=== PATIENT | female | born 1970 | race Caucasian/White ===

== ENCOUNTER 2019-05-21 03:49 | Inpatient (IN) | payer OTHER ==
[~2019-05-21] VITALS: Ht 160 cm; Wt 57.1 kg
[~2019-05-21 03:49] MED LIST: BUDEPRION XL300 MG PO; CYCLOBENZAPRINE10 MG PO; IBUPROFEN600 MG PO; NORCO 5-325 TA1 EACH PO; OMEPRAZOLE20 MG PO; ONDANSETRON ODT4 MG SL; PROMETHAZINE-COD5 ML PO; PROTONIX40 MG PO; WELLBUTRIN XL150 MG PO; ZOFRAN ODT8 MG PO; ZOFRAN4 MG PO
[2019-05-22] MEDS ORDERED: PEPCID40 MG PO (12:07)
== END 2019-05-22 13:15 | disposition home or self-care (01) | DRG 392 ==
LOC: ED 03:49 → MS 08:08
PROVIDERS: ADMIT Internal Medicine
DX: R11.2 Nausea with vomiting, unspecified (principal); R10.13 Epigastric pain; R00.1 Bradycardia, unspecified; F17.200 Nicotine dependence, unspecified, uncomplicated; F41.9 Anxiety disorder, unspecified; Z88.8 Allergy status to other drugs, medicaments and biological substances; Z87.11 Personal history of peptic ulcer disease; Z20.828 Contact with and (suspected) exposure to other viral communicable diseases
CPT/HCPCS: 36415; 74177; 80048; 80053; 81001; 83690; 83735; 84100; 85025; 87502; 96361; 99285-25; C9113; J1170; J1630; J2405; J2550; J2765; J7030; J7042; Q9967

== ENCOUNTER → 2020-02-26 | Emergency (ER) | payer OTHER | LOC: ED 10:54 | DX: R10.10 Upper abdominal pain, unspecified (principal); R11.2 Nausea with vomiting, unspecified; F41.9 Anxiety disorder, unspecified; F17.200 Nicotine dependence, unspecified, uncomplicated; Z88.8 Allergy status to other drugs, medicaments and biological substances ==

== ENCOUNTER 2020-11-14 15:37 | Emergency (ER) | payer BC, OTHER ==
[~2020-11-14] VITALS: Ht 160 cm; Wt 57.1 kg
[~2020-11-14 15:37] MED LIST changes: +ONDANSETRON ODT8 MG PO; +PEPCID40 MG PO
[2020-11-14] MEDS ORDERED: LISINOPRIL20 MG PO (15:59)
[2020-11-14] MEDS ORDERED: ONDANSETRON ODT4 MG PO (18:44)
== END 2020-11-14 19:09 | disposition home or self-care (01) ==
LOC: ED 15:37
DX: K29.70 Gastritis, unspecified, without bleeding (principal); F17.200 Nicotine dependence, unspecified, uncomplicated; Z88.6 Allergy status to analgesic agent; Z20.822 Contact with and (suspected) exposure to COVID-19
CPT/HCPCS: 80053; 81001; 83690; 83735; 84703; 85025; 96374; 99284-25; C9803; J2405; J7040; U0003

== ENCOUNTER 2022-05-13 05:52 | Emergency (ER) | payer OTHER ==
[~2022-05-13] VITALS: Ht 160 cm; Wt 52.7 kg
[~2022-05-13 05:52] MED LIST changes: +LISINOPRIL20 MG PO; +ONDANSETRON ODT4 MG PO
[2022-05-14] MEDS ORDERED: PROMETHAZINE HC25 M1 PO (16:03)
[2022-05-14] MEDS ORDERED: ATIVAN1 MG PO (16:03)
--- NOTE | 2022-05-14 19:02 | EKG ---
[facility] [address] [facility] [address] [place] [id number] Signed Normal sinus rhythm Possible Left atrial enlargement Nonspecific T wave abnormality Prolonged QT Abnormal ECG When compared with ECG of 11-SEP-2016 20:51, MA interval has increased T wave inversion now evident in Anterior leads Confirmed by DENI MILLS MD ([id number]) on 05/14/2022 7:01:59 PM Electronically Signed By: DENI MILLS MD 05/14/221901 PATIENT NAME: HONORIO MANCILLA MARIA Electrocardiogram DATE OF : 72 PHYSICIAN: DENI MILLS MD REPORT #: [id number] REPORT IS CONFIDENTIAL AND NOT TO BE RELEASED WITHOUT AUTHORIZATION
== END 2022-05-13 13:32 | disposition home or self-care (01) ==
LOC: ED 05:52
DX: R10.13 Epigastric pain (principal); R11.2 Nausea with vomiting, unspecified; F12.90 Cannabis use, unspecified, uncomplicated; F17.200 Nicotine dependence, unspecified, uncomplicated; Z20.822 Contact with and (suspected) exposure to COVID-19; Z88.6 Allergy status to analgesic agent
CPT/HCPCS: 36415; 74177; 80053; 81001; 83605; 83690; 84484; 85025; 87502; 93005; 93010; 96361; 96375; 99284-25; C9803; J0780; J1170; J1790; J2405; J2543; J3010; J7030; Q9967; U0003

== ENCOUNTER 2022-05-14 08:07 | Emergency (ER) | payer OTHER ==
[~2022-05-14] VITALS: Ht 160 cm; Wt 52.7 kg
--- OUTSIDE RECORDS SUMMARY | 2022-05-14 08:14 | XMS ---
PreManage Notification: HONORIO MANCILLA [employer] Team Member Events No recent Security Events currently on file CRITERIA MET - [facility] - 2 Visits in 30 Days CARE PROVIDERS There are no care providers on record at this time. [place] has no Care Guidelines for this patient. [facility] V[facility] (12 MO.) [facility] NOTE: Visits indicate total known visits. ED/C VISIT TRACKING (12 MO.) [facility]22 08[facility] COMPLAINT: - VOMITING 05/13/2022 05:53 [facility] [place] TYPE: Emergency COMPLAINT: - VOMITING INPATIENT VISIT TRACKING (12 MO.) No inpatient visits to display in this time frame [email or web address]
[2022-05-14] MEDS ORDERED: ATIVAN1 MG PO (16:03)
[2022-05-14] MEDS ORDERED: PROMETHAZINE HC25 M1 PO (16:03)
== END 2022-05-14 16:16 | disposition home or self-care (01) ==
LOC: ED 08:07
DX: R11.2 Nausea with vomiting, unspecified (principal); F12.90 Cannabis use, unspecified, uncomplicated; R10.9 Unspecified abdominal pain; F17.200 Nicotine dependence, unspecified, uncomplicated; Z88.6 Allergy status to analgesic agent
CPT/HCPCS: 36415; 80053; 83735; 85025; 87088; 96361; 96374; 96375; 96376; 99284-25; J1200; J1790; J1885; J2060; J7030

== ENCOUNTER 2022-12-11 13:57 | Emergency (ER) | payer OTHER ==
[~2022-12-11] VITALS: Ht 160 cm; Wt 53.7 kg
--- OUTSIDE RECORDS SUMMARY | ~2022-12-11 | XMS | Continuity of Care Document ---
Demographics + + + | Address | [address] | | | [place] [address] | + + + | Preferred Language | Unknown | + + + | Marital Status | Never | + + + | Adventist Affiliation | Unknown | + + + | Race | White | + + + | Ethnic Group | Not or | + + + Author + + + | Author | [facility] | + + + | Organization | [facility] | + + + | Address | [address] | | | [place] [address] | + + + | Phone | | + + + Care Team Providers + + + + | Care In Store Demonstrator Name | Role | Phone | + + + + Unavailable | Unavailable | + + + + Unavailable | Unavailable | + + + + Allergies and Intolerances + + + + + + | date | description | facility | reaction | severity | + + + + + + | (no date) | Aspirin | [facility] | (no reaction) | (no severity) | | [facility] | | | + + + + + + | (no date) | Aspirin | [facility] | (no reaction) | (no severity) | | | [facility] | | | + + + + + + | (no date) | Vomiting | [facility] | (no reaction) | (no severity) | | | [facility] | | | + + + + + + | (no date) | Aspirin | [facility] | (no reaction) | (no severity) | | | | [place] | | | | [facility] | | | + + + + + + Encounters No information. Functional Status No information. Immunizations No information. Medications + + + + | date | description | facility | + + + + | 2019-05-22 00:00 | FAMOTIDINE | [facility] | + + + + | 2022-05-14 00:00 | LORAZEPAM | [facility] | + + + + | 2015-01-11 00:00 | ONDANSETRON | [facility] | + + + + | 2022-05-13 00:00 | ONDANSETRON HCL | [facility] | + + + + | 2022-05-14 00:00 | ONDANSETRON HCL | [facility] | + + + + | 2020-02-26 00:00 | OMEPRAZOLE | [facility] | + + + + | 2022-05-13 00:00 | OMEPRAZOLE | [facility] | + + + + | 2022-05-14 00:00 | OMEPRAZOLE | [facility] | + + + + | 2016-04-24 00:00 | PANTOPRAZOLE SODIUM | [facility] | + + + + | 2020-02-26 00:00 | ONDANSETRON | [facility] | + + + + | 2022-05-13 00:00 | LISINOPRIL | [facility] | + + + + | 2022-05-14 00:00 | LISINOPRIL | [facility] | + + + + | 2015-01-11 00:00 | HYDROCODONE | [facility] | | | BIT/ACETAMINOPHEN | | + + + + | 2022-05-13 00:00 | HYDROCODONE | [facility] | | | BIT/ACETAMINOPHEN | | + + + + | 2022-05-14 00:00 | HYDROCODONE | [facility] | | | BIT/ACETAMINOPHEN | | + + + + | 2022-05-14 00:00 | PROMETHAZINE HCL | [facility] | + + + + | 2022-05-13 00:00 | BUPROPION HCL | [facility] | + + + + | 2022-05-14 00:00 | BUPROPION HCL | [facility] | + + + + Problems + + + + | date | description | facility | + + + + | 2015-01-11 00:00 | Gastritis | [facility] | + + + + | 2016-04-24 00:00 | Peptic ulcer | [facility] | + + + + | 2016-09-12 00:00 | Alcohol abuse | [facility] | + + + + | 2016-09-12 00:00 | Chest pain | [facility] | + + + + | 2019-05-21 00:00 | Acute gastritis | [facility] | + + + + | 2020-11-14 00:00 | Vomiting and diarrhea | [facility] | + + + + | 2022-05-13 00:00 | Abdominal pain | [facility] | + + + + | 2022-05-13 00:00 | Cannabinoid hyperemesis | [facility] | | | syndrome | | + + + + Procedures No information. Results/Labs +--------+--------+ +---------+--------+---------+ | test | date | facility | value | unit | notes | +--------+--------+ +---------+--------+---------+ + + | Result panel 1 | + + + + + +--------+ + + | | 2022-05-13 | [facility] | 23.3 | (missing) | (missing) | | (unavailable | 06:27:08 [facility] | | | | + + + +--------+ + + + + | Result panel 2 | + + + + + +------+ + + | | 2022-05-13 | [facility] | 89 | (missing) | (missing) | | (unavailable | :27:08 | [facility] | | | | + + + +------+ + + + + | Result panel 3 | + + + + + +-----+ + + | | 2022-05-13 | [facility] | 4 | (missing) | (missing) | | (unavailable | :27:08 | [facility] | | | | + + + +-----+ + + + + | Result panel 4 | + + + + + +-----+ + + | | 2022-05-13 | [facility] | 5 | (missing) | (missing) | | (unavailable | :27:08 [facility] | | | | + + + +-----+ + + + + | Result panel 5 | + + + + + +------+ + + | | 2022-05-13 | [facility] | 89 | (missing) | (missing) | | (unavailable | :27:08 [facility] | | | | + + + +------+ + + + + | Result panel 6 | + + + + + +-----+ + + | | 2022-05-13 | [facility] | 4 | (missing) | (missing) | | (unavailable | :27:08 [facility] | | | | + + + +-----+ + + + + | Result panel 7 | + + + + + +-----+ + + | | 2022-05-13 | [facility] | 5 | (missing) | (missing) | | (unavailable | 06:27:08 [facility] | | | | + + + +-----+ + + + + | Result panel 8 | + + + + + +-----+ + + | | 2022-05-13 | [facility] | 2 | (missing) | (missing) | | (unavailable | 06:27:08 [facility] | | | | + + + +-----+ + + + + | Result panel 9 | + + + + + +-----+ + + | | 2022-05-13 | [facility] | 2 | (missing) | (missing) | | (unavailable | 06:27:08 [facility] | | | | + + + +-----+ + + + + | Result panel 10 | + + + + + +------+ + + | | 2022-05-13 | [facility] | 64 | (missing) | (missing) | | (unavailable | 06:27:08 [facility] | | | | + + + +------+ + + + + | Result panel 11 | + + + + + +--------+ + + | | 2022-05-13 | [facility] | <4.0 | (missing) | (missing) | | (unavailable | :27:08 [facility] | | | | + + + +--------+ + + + + | Result panel 12 | + + + + + +--------+ + + | | 2022-05-13 | [facility] | 5.96 | (missing) | (missing) | | (unavailable | :08 | [facility] | | | | + + + +--------+ + + + + | Result panel 13 | + + + + + +--------+ + + | | 2022-05-13 | [facility] | 17.5 | (missing) | (missing) | | (unavailable | :08 | [facility] | | | | + + + +--------+ + + + + | Result panel 14 | + + + + + +-------+---------+ + | | 2022-05-13 | [facility] | 176 | mg/dL | (missing) | | (unavailable | :27:08 | [facility] | | | | + + + +-------+---------+ + + + | Result panel 15 | + + + + + +------+---------+ + | | 2022-05-13 | [facility] | 21 | mg/dL | (missing) | | (unavailable | :27:08 [facility] | | | | + + + +------+---------+ + + + | Result panel 16 | + + + + + +--------+---------+ + | | 2022-05-13 | [facility] | 0.76 | mg/dL | (missing) | | (unavailable | ::08 | [facility] | | | | + + + +--------+---------+ + + + | Result panel 17 | + + + + + +------+ + + | | 2022-05-13 | [facility] | 95 | (missing) | (missing) | | (unavailable | :08 | [facility] | | | | + + + +------+ + + + + | Result panel 18 | + + + + + +---------+ + + | | 2022-05-13 | [facility] | 27.63 | (missing) | (missing) | | (unavailable | ::08 | [facility] | | | | + + + +---------+ + + + + | Result panel 19 | + + + + + +-------+ + + | | 2022-05-13 | [facility] | 140 | (missing) | (missing) | | (unavailable | ::08 | [facility] | | | | + + + +-------+ + + + + | Result panel 20 | + + + + + +-------+ + + | | 2022-05-13 | [facility] | 3.7 | (missing) | (missing) | | (unavailable | :27:08 [facility] | | | | + + + +-------+ + + + + | Result panel 21 | + + + + + +--------+ + + | | 2022-05-13 | [facility] | 52.9 | (missing) | (missing) | | (unavailable | :27:08 [facility] | | | | + + + +--------+ + + + + | Result panel 22 | + + + + + +-------+ + + | | 2022-05-13 | [facility] | 101 | (missing) | (missing) | | (unavailable | 06:27:08 [facility] | | | + + + +-------+ + + + + | Result panel 23 | + + + + + +------+ + + | | 2022-05-13 | [facility] | 29 | (missing) | (missing) | | (unavailable | 06:27:08 [facility] | | | + + + +------+ + + + + | Result panel 24 | + + + + + +--------+ + + | | 2022-05-13 | [facility] | 13.7 | (missing) | (missing) | | (unavailable | 06:27:08 [facility] | | | + + + +--------+ + + + + | Result panel 25 | + + + + + +-------+---------+ + | | 2022-05-13 | [facility] | 9.8 | mg/dL | (missing) | | (unavailable | :27:08 [facility] | | | | + + + +-------+---------+ + + + | Result panel 26 | + + + + + +-------+ + + | | 2022-05-13 | [facility] | 8.5 | (missing) | (missing) | | (unavailable | 06:27:08 [facility] | | | + + + +-------+ + + + + | Result panel 27 | + + + + + +-------+ + + | | 2022-05-13 | [facility] | 4.5 | (missing) | (missing) | | (unavailable | :27:08 [facility] | | | | + + + +-------+ + + + + | Result panel 28 | + + + + + +-------+ + + | | 2022-05-13 | [facility] | 4.0 | (missing) | (missing) | | (unavailable | 06:27:08 [facility] | | | + + + +-------+ + + + + | Result panel 29 | + + + + + +--------+ + + | | 2022-05-13 | [facility] | 1.13 | (missing) | (missing) | | (unavailable | :27:08 [facility] | | | + + + +--------+ + + + + | Result panel 30 | + + + + + +-------+ + + | | 2022-05-13 | [facility] | 0.7 | (missing) | (missing) | | (unavailable | 06:27:08 [facility] | | | + + + +-------+ + + + + | Result panel 31 | + + + + + +------+ + + | | 2022-05-13 | [facility] | 17 | (missing) | (missing) | | (unavailable | :27:08 [facility] | | | + + + +------+ + + + + | Result panel 32 | + + + + + +--------+ + + | | 2022-05-13 | [facility] | 88.8 | (missing) | (missing) | | (unavailable | 06:27:08 [facility] | | | + + + +--------+ + + + + | Result panel 33 | + + + + + +------+ + + | | 2022-05-13 | [facility] | 29 | (missing) | (missing) | | (unavailable | 06:27:08 [facility] | | | + + + +------+ + + + + | Result panel 34 | + + + + + +------+ + + | | 2022-05-13 | [facility] | 66 | (missing) | (missing) | | (unavailable | 06:27:08 [facility] | | | + + + +------+ + + + + | Result panel 35 | + + + + + +------+ + + | | 2022-05-13 | [facility] | 64 | (missing) | (missing) | | (unavailable | 06:27:08 [facility] | | | + + + +------+ + + + + | Result panel 36 | + + + + + +--------+ + + | | 2022-05-13 | [facility] | <4.0 | (missing) | (missing) | | (unavailable | 06:27:08 [facility] | | | + + + +--------+ + + + + | Result panel 37 | + + + + + +--------+ + + | | 2022-05-13 | [facility] | 29.3 | (missing) | (missing) | | (unavailable | :08 | [facility] | | | + + + +--------+ + + + + | Result panel 38 | + + + + + +--------+ + + | | 2022-05-13 | [facility] | 33.0 | (missing) | (missing) | | (unavailable | 06:27:08 [facility] | | | + + + +--------+ + + + + | Result panel 39 | + + + + + +--------+ + + | | 2022-05-13 | [facility] | 13.8 | (missing) | (missing) | | (unavailable | 06:27:08 [facility] | | | + + + +--------+ + + + + | Result panel 40 | + + + + + +-------+ + + | | 2022-05-13 | [facility] | 221 | (missing) | (missing) | | (unavailable | 06:27:08 [facility] | | | + + + +-------+ + + + + | Result panel 41 | + + + + + +-------+ + + | | 2022-05-13 | [facility] | 1.5 | (missing) | (missing) | | (unavailable | 06:30:08 [facility] | | | + + + +-------+ + + + + | Result panel 42 | + + + + + +-------+ + + | | 2022-05-13 | [facility] | 1.5 | (missing) | (missing) | | (unavailable | 06:30:08 [facility] | | | + + + +-------+ + + + + | Result panel 43 | + + + + + + + + + | | 2022-05-13 | [facility] | NEGATIVE | (missing) | (missing) | | (unavailable | 08:04:08 [facility] | | | + + + + + + + + + | Result panel 44 | + + + + + + + + + | | 2022-05-13 | [facility] | NEGATIVE | (missing) | (missing) | | (unavailable | 08:04:08 [facility] | | | + + + + + + + + + | Result panel 45 | + + + + + + + + + | | 2022-05-13 | [facility] | NEGATIVE | (missing) | (missing) | | (unavailable | 08:04:08 [facility] | | | + + + + + + + + + | Result panel 46 | + + + + + + + + + | | 2022-05-13 | [facility] | NEGATIVE | (missing) | (missing) | | (unavailable | 08:04:08 [facility] | | | + + + + + + + + + | Result panel 47 | + + + + + + + + + | | 2022-05-13 | [facility] | NEGATIVE | (missing) | (missing) | | (unavailable | 08:04:08 [facility] | | | + + + + + + + + + | Result panel 48 | + + + + + + + + + | | 2022-05-13 | [facility] | NEGATIVE | (missing) | (missing) | | (unavailable | 08:04:08 [facility] | | | + + + + + + + + + | Result panel 49 | + + + + + + + + + | | 2022-05-13 | [facility] | NEGATIVE | (missing) | (missing) | | (unavailable | 08:04:08 [facility] | | | + + + + + + + + + | Result panel 50 | + + + + + + + + + | | 2022-05-13 | [facility] | NEGATIVE | (missing) | (missing) | | (unavailable | 08:04:08 [facility] | | | + + + + + + + + + | Result panel 51 | + + + + + + + + + | | 2022-05-13 | [facility] | POSITIVE | (missing) | (missing) | | (unavailable | 08:54:08 [facility] | | | + + + + + + + + + | Result panel 52 | + + + + + + + + + | | 2022-05-13 | [facility] | NEGATIVE | (missing) | (missing) | | (unavailable | 08:54:08 [facility] | | | + + + + + + + + + | Result panel 53 | + + + + + + + + + | | 2022-05-13 | [facility] | NEGATIVE | (missing) | (missing) | | (unavailable | 08:54:08 [facility] | | | + + + + + + + + + | Result panel 54 | + + + + + + + + + | | 2022-05-13 | [facility] | NEGATIVE | (missing) | (missing) | | (unavailable | 08:54:08 [facility] | | | + + + + + + + + + | Result panel 55 | + + + + + + + + + | | 2022-05-13 | [facility] | NEGATIVE | (missing) | (missing) | | (unavailable | 08:54:08 [facility] | | | + + + + + + + + + | Result panel 56 | + + + + + + + + + | | 2022-05-13 | [facility] | NEGATIVE | (missing) | (missing) | | (unavailable | 08:54:08 [facility] | | | + + + + + + + + + | Result panel 57 | + + + + + + + + + | | 2022-05-13 | [facility] | NEGATIVE | (missing) | (missing) | | (unavailable | 08:54:08 [facility] | | | + + + + + + + + + | Result panel 58 | + + + + + + + + + | | 2022-05-13 | [facility] | YELLOW | (missing) | (missing) | | (unavailable | 08:54:08 [facility] | | | + + + + + + + + + | Result panel 59 | + + + + + + + + + | | 2022-05-13 | [facility] | NEGATIVE | (missing) | (missing) | | (unavailable | 08:54:08 [facility] | | | + + + + + + + + + | Result panel 60 | + + + + + + + + + | | 2022-05-13 | [facility] | NEGATIVE | (missing) | (missing) | | (unavailable | 08:54:08 [facility] | | | + + + + + + + + + | Result panel 61 | + + + + + + + + + | | 2022-05-13 | [facility] | NEGATIVE | (missing) | (missing) | | (unavailable | 08:54:08 [facility] | | | + + + + + + + + + | Result panel 62 | + + + + + + + + + | | 2022-05-13 | [facility] | NEGATIVE | (missing) | (missing) | | (unavailable | 08:54:08 [facility] | | | + + + + + + + + + | Result panel 63 | + + + + + + + + + | | 2022-05-13 | [facility] | NEGATIVE | (missing) | (missing) | | (unavailable | 08:54:08 [facility] | | | + + + + + + + + + | Result panel 64 | + + + + + + + + + | | 2022-05-13 | [facility] | NEGATIVE | (missing) | (missing) | | (unavailable | 08:54:08 [facility] | | | + + + + + + + + + | Result panel 65 | + + + + + +---------+ + + | | 2022-05-13 | [facility] | CLEAR | (missing) | (missing) | | (unavailable | 08:54:08 [facility] | | | + + + +---------+ + + + + | Result panel 66 | + + + + + + + + + | | 2022-05-13 | [facility] | NEGATIVE | (missing) | (missing) | | (unavailable | 08:54:08 [facility] | | | + + + + + + + + + | Result panel 67 | + + + + + + + + + | | 2022-05-13 | [facility] | NEGATIVE | (missing) | (missing) | | (unavailable | 08:54:08 [facility] | | | + + + + + + + + + | Result panel 68 | + + + + + + + + + | | 2022-05-13 | [facility] | NEGATIVE | (missing) | (missing) | | (unavailable | 08:54:08 [facility] | | | + + + + + + + + + | Result panel 69 | + + + + + +---------+ + + | | 2022-05-13 | [facility] | 1.010 | (missing) | (missing) | | (unavailable | 08:54:08 [facility] | | | + + + +---------+ + + + + | Result panel 70 | + + + + + + + + + | | 2022-05-13 | [facility] | TRACE-I | (missing) | (missing) | | (unavailable | 08:54:08 [facility] | | | + + + + + + + + + | Result panel 71 | + + + + + +-------+ + + | | 2022-05-13 | [facility] | 8.0 | (missing) | (missing) | | (unavailable | 08:54:08 [facility] | | | + + + +-------+ + + + + | Result panel 72 | + + + + + + + + + | | 2022-05-13 | [facility] | NEGATIVE | (missing) | (missing) | | (unavailable | 08:54:08 [facility] | | | | + + + + + + + + + | Result panel 73 | + + + + + + + + + | | 2022-05-13 | [facility] | NORMAL | (missing) | (missing) | | (unavailable | 08:54:08 [facility] | | | + + + + + + + + + | Result panel 74 | + + + + + + + + + | | 2022-05-13 | [facility] | NEGATIVE | (missing) | (missing) | | (unavailable | 08:54:08 [facility] | | | + + + + + + + + + | Result panel 75 | + + + + + + + + + | | 2022-05-13 | [facility] | NEGATIVE | (missing) | (missing) | | (unavailable | 08:54:08 [facility] | | | + + + + + + + + + | Result panel 76 | + + + + + +-------+ + + | | 2022-05-13 | [facility] | 2-3 | (missing) | (missing) | | (unavailable | 08:54:08 [facility] | | | + + + +-------+ + + + + | Result panel 77 | + + + + + +-------+ + + | | 2022-05-13 | [facility] | 0-1 | (missing) | (missing) | | (unavailable | 08:54:08 [facility] | | | + + + +-------+ + + + + | Result panel 78 | + + + + + + + + + | | 2022-05-13 | [facility] | SQUAMOUS 1+ | (missing) | (missing) | | (unavailable | 08:54:08 [facility] | | | + + + + + + + + + | Result panel 79 | + + + + + + + + + | | 2022-05-13 | [facility] | NONE SEEN | (missing) | (missing) | | (unavailable | 08:54:08 [facility] | | | + + + + + + + + + | Result panel 80 | + + + + + +--------+ + + | | 2022-05-13 | [facility] | RARE | (missing) | (missing) | | (unavailable | 08:54:08 [facility] | | | + + + +--------+ + + + + | Result panel 81 | + + + + + +------+ + + | | 2022-05-13 | [facility] | No | (missing) | (missing) | | (unavailable | 08:54:08 [facility] | | | + + + +------+ + + + + | Result panel 82 | + + + + + + + + + | | 2022-05-13 | [facility] | CLEAN CATCH | (missing) | (missing) | | (unavailable | 08:54:08 [facility] | | | + + + + + + + + + | Result panel 83 | + + + + + + + + + | | 2022-05-13 | [facility] | POSITIVE | (missing) | (missing) | | (unavailable | 08:54:08 [facility] | | | + + + + + + + + + | Result panel 84 | + + + + + + + + + | | 2022-05-13 | [facility] | NEGATIVE | (missing) | (missing) | | (unavailable | 08:54:08 [facility] | | | + + + + + + + + + | Result panel 85 | + + + + + + + + + | | 2022-05-13 | [facility] | NEGATIVE | (missing) | (missing) | | (unavailable | 08:54:08 [facility] | | | + + + + + + + + + | Result panel 86 | + + + + + + + + + | | 2022-05-13 | [facility] | NEGATIVE | (missing) | (missing) | | (unavailable | 08:54:08 [facility] | | | + + + + + + + + + | Result panel 87 | + + + + + + + + + | | 2022-05-13 | [facility] | NEGATIVE | (missing) | (missing) | | (unavailable | 08:54:08 [facility] | | | + + + + + + + + + | Result panel 88 | + + + + + + + + + | | 2022-05-13 | [facility] | NEGATIVE | (missing) | (missing) | | (unavailable | 08:54:08 [facility] | | | + + + + + + + + + | Result panel 89 | + + + + + + + + + | | 2022-05-13 | [facility] | NEGATIVE | (missing) | (missing) | | (unavailable | 08:54:08 [facility] | | | + + + + + + + + + | Result panel 90 | + + + + + + + + + | | 2022-05-13 | [facility] | NEGATIVE | (missing) | (missing) | | (unavailable | 08:54:08 [facility] | | | + + + + + + + + + | Result panel 91 | + + + + + + + + + | | 2022-05-13 | [facility] | NEGATIVE | (missing) | (missing) | | (unavailable | 08:54:08 | [facility] | | | | + + + + + + + + + | Result panel 92 | + + + + + + + + + | | 2022-05-13 | [facility] | NEGATIVE | (missing) | (missing) | | (unavailable | 08:54:08 | [facility] | | | | + + + + + + + + + | Result panel 93 | + + + + + + + + + | | 2022-05-13 | [facility] | NEGATIVE | (missing) | (missing) | | (unavailable | 08:54:08 | [facility] | | | | + + + + + + + + + | Result panel 94 | + + + + + + + + + | | 2022-05-13 | [facility] | NEGATIVE | (missing) | (missing) | | (unavailable | 08:54:08 | [facility] | | | | + + + + + + + + + | Result panel 95 | + + + + + + + + + | | 2022-05-13 | [facility] | NEGATIVE | (missing) | (missing) | | (unavailable | 08:54:08 | [facility] | | | | + + + + + + + + + | Result panel 96 | + + + + + +-----+ + + | | 2022-05-14 | [facility] | 0 | (missing) | (missing) | | (unavailable | 08:35:08 | [facility] | | | | + + + +-----+ + + + + | Result panel 97 | + + + + + + + + + | | 2022-05-14 | [facility] | AMORPHOUS | (missing) | (missing) | | (unavailable | 08:35:08 | [facility] | | [facility] | | | | + + + + + + + + + | Result panel 98 | + + + + + +------+ + + | | 2022-05-14 | [facility] | 4+ | (missing) | (missing) | | (unavailable | 08:35:08 | [facility] | | | | + + + +------+ + + + + | Result panel 99 | + + + + + + + + + | | 2022-05-14 | [facility] | NONE SEEN | (missing) | (missing) | | (unavailable | 08:35:08 | [facility] | | | | + + + + + + + + + | Result panel 100 | + + + + + +-------+ + + | | 2022-05-14 | [facility] | Yes | (missing) | (missing) | | (unavailable | 08:35:08 | [facility] | | | | + + + +-------+ + + + + | Result panel 101 | + + + + + + + + + | | 2022-05-14 | [facility] | CLEAN CATCH | (missing) | (missing) | | (unavailable | 08:35:08 | [facility] | | | | + + + + + + + + + | Result panel 102 | + + + + + +-------+---------+ + | | 2022-05-14 | [facility] | 151 | mg/dL | (missing) | | (unavailable | 08:35:08 | [facility] | | | | + + + +-------+---------+ + + + | Result panel 103 | + + + + + +-----+---------+ + | | 2022-05-14 | [facility] | 8 | mg/dL | (missing) | | (unavailable | 08:35:08 | [facility] | | | | + + + +-----+---------+ + + + | Result panel 104 | + + + + + +--------+---------+ + | | 2022-05-14 | [facility] | 0.63 | mg/dL | (missing) | | (unavailable | 08:35:08 | [facility] | | | | + + + +--------+---------+ + + + | Result panel 105 | + + + + + +-------+ + + | | 2022-05-14 | [facility] | 107 | (missing) | (missing) | | (unavailable | 08:35:08 | [facility] | | | | + + + +-------+ + + + + | Result panel 106 | + + + + + +---------+ + + | | 2022-05-14 | [facility] | 12.69 | (missing) | (missing) | | (unavailable | 08:35:08 | [facility] | | | | + + + +---------+ + + + + | Result panel 107 | + + + + + +-------+ + + | | 2022-05-14 | [facility] | 138 | (missing) | (missing) | | (unavailable | 08:35:08 | [facility] | | | | + + + +-------+ + + + + | Result panel 108 | + + + + + +-------+ + + | | 2022-05-14 | [facility] | 3.5 | (missing) | (missing) | | (unavailable | 08:35:08 | [facility] | | | | + + + +-------+ + + + + | Result panel 109 | + + + + + +-------+ + + | | 2022-05-14 | [facility] | 103 | (missing) | (missing) | | (unavailable | 08:35:08 | [facility] | | | | + + + +-------+ + + + + | Result panel 110 | + + + + + +------+ + + | | 2022-05-14 | [facility] | 26 | (missing) | (missing) | | (unavailable | 08:35:08 | [facility] | | | | + + + +------+ + + + + | Result panel 111 | + + + + + +--------+ + + | | 2022-05-14 | [facility] | 12.5 | (missing) | (missing) | | (unavailable | 08:35:08 | [facility] | | | | + + + +--------+ + + + + | Result panel 112 | + + + + + +-------+---------+ + | | 2022-05-14 | [facility] | 8.7 | mg/dL | (missing) | | (unavailable | 08:35:08 | [facility] | | | | + + + +-------+---------+ + + + | Result panel 113 | + + + + + +-------+---------+ + | | 2022-05-14 | [facility] | 2.1 | mg/dL | (missing) | | (unavailable | 08:35:08 | [facility] | | | | + + + +-------+---------+ + + + | Result panel 114 | + + + + + +-------+ + + | | 2022-05-14 | [facility] | 6.8 | (missing) | (missing) | | (unavailable | 08:35:08 | [facility] | | | | + + + +-------+ + + + + | Result panel 115 | + + + + + +-------+ + + | | 2022-05-14 | [facility] | 3.4 | (missing) | (missing) | | (unavailable | 08:35:08 | [facility] | | | | + + + +-------+ + + + + | Result panel 116 | + + + + + +-------+ + + | | 2022-05-14 | [facility] | 3.4 | (missing) | (missing) | | (unavailable | 08:35:08 | [facility] | | | | + + + +-------+ + + + + | Result panel 117 | + + + + + +--------+ + + | | 2022-05-14 | [facility] | 1.00 | (missing) | (missing) | | (unavailable | 08:35:08 | [facility] | | | + + + +--------+ + + + + | Result panel 118 | + + + + + +-------+ + + | | 2022-05-14 | [facility] | 0.4 | (missing) | (missing) | | (unavailable | 08:35:08 | [facility] | | | | + + + +-------+ + + + + | Result panel 119 | + + + + + +------+ + + | | 2022-05-14 | [facility] | 19 | (missing) | (missing) | | (unavailable | 08:35:08 | [facility] | | | | + + + +------+ + + + + | Result panel 120 | + + + + + +------+ + + | | 2022-05-14 | [facility] | 28 | (missing) | (missing) | | (unavailable | 08:35:08 | [facility] | | | | + + + +------+ + + + + | Result panel 121 | + + + + + +------+ + + | | 2022-05-14 | [facility] | 54 | (missing) | (missing) | | (unavailable | 08:35:08 | [facility] | | | | + + + +------+ + + + + | Result panel 122 | + + + + + +--------+ + + | | 2022-05-14 | [facility] | 12.4 | (missing) | (missing) | | (unavailable | 08:35:08 | [facility] | | | | + + + +--------+ + + + + | Result panel 123 | + + + + + +--------+ + + | | 2022-05-14 | [facility] | 5.03 | (missing) | (missing) | | (unavailable | 08:35:08 | [facility] | | | | + + + +--------+ + + + + | Result panel 124 | + + + + + +--------+ + + | | 2022-05-14 | [facility] | 14.7 | (missing) | (missing) | | (unavailable | 08:35:08 | [facility] | | | | + + + +--------+ + + + + | Result panel 125 | + + + + + +--------+ + + | | 2022-05-14 | [facility] | 44.2 | (missing) | (missing) | | (unavailable | 08:35:08 | [facility] | | | | + + + +--------+ + + + + | Result panel 126 | + + + + + +--------+ + + | | 2022-05-14 | [facility] | 87.9 | (missing) | (missing) | | (unavailable | 08:35:08 | [facility] | | | | + + + +--------+ + + + + | Result panel 127 | + + + + + +--------+ + + | | 2022-05-14 | [facility] | 29.2 | (missing) | (missing) | | (unavailable | 08:35:08 | [facility] | | | + + + +--------+ + + + + | Result panel 128 | + + + + + +--------+ + + | | 2022-05-14 | [facility] | 33.2 | (missing) | (missing) | | (unavailable | 08:35:08 | [facility] | | | + + + +--------+ + + + + | Result panel 129 | + + + + + +--------+ + + | | 2022-05-14 | [facility] | 13.8 | (missing) | (missing) | | (unavailable | 08:35:08 | [facility] | | | | + + + +--------+ + + + + | Result panel 130 | + + + + + +-------+ + + | | 2022-05-14 | [facility] | 153 | (missing) | (missing) | | (unavailable | 08:35:08 | [facility] | | | | + + + +-------+ + + + + | Result panel 131 | + + + + + +--------+ + + | | 2022-05-14 | [facility] | 88.1 | (missing) | (missing) | | (unavailable | 08:35:08 | [facility] | | | | + + + +--------+ + + + + | Result panel 132 | + + + + + +-------+ + + | | 2022-05-14 | [facility] | 6.4 | (missing) | (missing) | | (unavailable | 08:35:08 | [facility] | | | | + + + +-------+ + + + + | Result panel 133 | + + + + + +-------+ + + | | 2022-05-14 | [facility] | 5.0 | (missing) | (missing) | | (unavailable | 08:35:08 | [facility] | | | | + + + +-------+ + + + + | Result panel 134 | + + + + + +-------+ + + | | 2022-05-14 | [facility] | 0.2 | (missing) | (missing) | | (unavailable | 08:35:08 | [facility] | | | | + + + +-------+ + + + + | Result panel 135 | + + + + + +-------+ + + | | 2022-05-14 | [facility] | 0.3 | (missing) | (missing) | | (unavailable | 08:35:08 | [facility] | | | | + + + +-------+ + + + + | Result panel 136 | + + + + + + + + + | | 2022-05-14 | [facility] | YELLOW | (missing) | (missing) | | (unavailable | 08:35:08 | [facility] | | | | + + + + + + + + + | Result panel 137 | + + + + + +---------+ + + | | 2022-05-14 | [facility] | CLEAR | (missing) | (missing) | | (unavailable | 08:35:08 | [facility] | | | | + + + +---------+ + + + + | Result panel 138 | + + + + + + + + + | | 2022-05-14 | [facility] | NEGATIVE | (missing) | (missing) | | (unavailable | 08:35:08 | [facility] | | | | + + + + + + + + + | Result panel 139 | + + + + + + + + + | | 2022-05-14 | [facility] | NEGATIVE | (missing) | (missing) | | (unavailable | 08:35:08 | [facility] | | | | + + + + + + + + + | Result panel 140 | + + + + + + + + + | | 2022-05-14 | [facility] | NEGATIVE | (missing) | (missing) | | (unavailable | 08:35:08 | [facility] | | | | + + + + + + + + + | Result panel 141 | + + + + + + + + + | | 2022-05-14 | [facility] | >=1.030 | (missing) | (missing) | | (unavailable | 08:35:08 | [facility] | | | | + + + + + + + + + | Result panel 142 | + + + + + +---------+ + + | | 2022-05-14 | [facility] | LARGE | (missing) | (missing) | | (unavailable | 08:35:08 | [facility] | | | | + + + +---------+ + + + + | Result panel 143 | + + + + + +-------+ + + | | 2022-05-14 | [facility] | 5.0 | (missing) | (missing) | | (unavailable | 08:35:08 | [facility] | | | | + + + +-------+ + + + + | Result panel 144 | + + + + + + + + + | | 2022-05-14 | [facility] | NEGATIVE | (missing) | (missing) | | (unavailable | 08:35:08 | [facility] | | | | + + + + + + + + + | Result panel 145 | + + + + + + + + + | | 2022-05-14 | [facility] | NORMAL | (missing) | (missing) | | (unavailable | 08:35:08 | [facility] | | | | + + + + + + + + + | Result panel 146 | + + + + + + + + + | | 2022-05-14 | [facility] | NEGATIVE | (missing) | (missing) | | (unavailable | 08:35:08 | [facility] | | | | + + + + + + + + + | Result panel 147 | + + + + + + + + + | | 2022-05-14 | [facility] | NEGATIVE | (missing) | (missing) | | (unavailable | 08:35:08 | [facility] | | | | + + + + + + + + + | Result panel 148 | + + + + + +-------+ + + | | 2022-05-14 | [facility] | 2-3 | (missing) | (missing) | | (unavailable | 08:35:08 | [facility] | | | | + + + +-------+ + + + + | Result panel 149 | + + + + + +-------+ + + | | 2022-05-14 | [facility] | 0-1 | (missing) | (missing) | | (unavailable | 08:35:08 | [facility] | | | | + + + +-------+ + + Social History No information. Vital Signs + + + +---------+ | date | measurement | value | units | + + + +---------+ | 2022-05-13 00:00 | BMI | 20.6 | kg/m2 | + + + +---------+ | 2022-05-13 00:00 | BP_diastolic | 76 | mmHg | + + + +---------+ | 2022-05-13 00:00 | BP_systolic | 105 | mmHg | + + + +---------+ | 2022-05-13 00:00 | heart_rate | 82 | /min | + + + +---------+ | 2022-05-13 00:00 | height_metric | 160.02 | cm | + + + +---------+ | 2022-05-13 00:00 | height_standard | 63 | in | + + + +---------+ | 2022-05-13 00:00 | o2_saturation | 98 | % | + + + +---------+ | 2022-05-13 00:00 | respiration_rate | 16 | /min | + + + +---------+ | 2022-05-13 00:00 | temperature_metric | 36.72 | C | | | | | | + + + +---------+ | 2022-05-13 00:00 | | 98.1 | F | | | temperature_standar | | | | | d | | | + + + +---------+ | 2022-05-13 00:00 | weight_metric | 52.7 | kg | + + + +---------+ | 2022-05-13 00:00 | weight_standard | 116.18 | lb | + + + +---------+ | 2022-05-14 00:00 | BMI | 20.6 | kg/m2 | + + + +---------+ | 2022-05-14 00:00 | BP_diastolic | 71 | mmHg | + + + +---------+ | 2022-05-14 00:00 | BP_systolic | 150 | mmHg | + + + +---------+ | 2022-05-14 00:00 | heart_rate | 55 | /min | + + + +---------+ | 2022-05-14 00:00 | height_metric | 160.02 | cm | + + + +---------+ | 2022-05-14 00:00 | height_standard | 63 | in | + + + +---------+ | 2022-05-14 00:00 | o2_saturation | 97 | % | + + + +---------+ | 2022-05-14 00:00 | respiration_rate | 16 | /min | + + + +---------+ | 2022-05-14 00:00 | temperature_metric | 37.06 | C | | | | | | + + + +---------+ | 2022-05-14 00:00 | | 98.7 | F | | | temperature_standar | | | | | d | | | + + + +---------+ | 2022-05-14 00:00 | weight_metric | 52.67 | kg | + + + +---------+ | 2022-05-14 00:00 | weight_metric | 52.68 | kg | + + + +---------+ | 2022-05-14 00:00 | weight_standard | 116.12 | lb | + + + +---------+ | 2022-05-14 00:00 | weight_standard | 116.13 | lb | + + + +---------+"
--- OUTSIDE RECORDS SUMMARY | ~2022-12-11 | XMS | Continuity of Care Document ---
Demographics + + + | Address | [address] | | | [place] [address] | + + + | Preferred Language | Unknown | + + + | Marital Status | Never | + + + | Alevism Affiliation | Unknown | + + + | Race | White | + + + | Ethnic Group | Not or | + + + Author + + + | Author | [facility] | + + + | Organization | [facility] | + + + | Address | [address] | | | [place] [address] | + + + | Phone | | + + + Care Team Providers + + + + | Care Intelligence Manager Name | Role | Phone | + [...] | (no severity) | | | | [facility] | | | | | | [facility] | | | + + + + + + Encounters No information. Functional Status No information. Immunizations No information. Medications + + + + | date | description | facility | + + + + | 2019-05-22 00:00 | FAMOTIDINE | [facility] | + + + + | 2022-05-14 00:00 | LORAZEPAM | [facility] | + + + + | 2015-01-11 00:00 | ONDANSETRON | [facility] | + + + + | 2022-05-13 00:00 | ONDANSETRON HCL | [facility] | + + + + | 2022-05-14 00:00 | ONDANSETRON HCL | [facility] | + + + + | 2020-02-26 00:00 | OMEPRAZOLE | [facility] | + + + + | 2022-05-13 00:00 | OMEPRAZOLE | [facility] | + + + + | 2022-05-14 00:00 | OMEPRAZOLE | [facility] | + + + + | 2016-04-24 00:00 | PANTOPRAZOLE SODIUM | [facility] | + + + + | 2020-02-26 00:00 | ONDANSETRON | [facility] | + + + + | 2022-05-13 00:00 | LISINOPRIL | [facility] | + + + + | 2022-05-14 00:00 | LISINOPRIL | [facility] | + + + + | 2015-01-11 00:00 | HYDROCODONE | [facility] | | | BIT/ACETAMINOPHEN | | + + + + | 2022-05-13 00:00 | HYDROCODONE | [facility] | | | BIT/ACETAMINOPHEN | | + + + + | 2022-05-14 00:00 | HYDROCODONE | [facility] | | | BIT/ACETAMINOPHEN | | + + + + | 2022-05-14 00:00 | PROMETHAZINE HCL | [facility] | + + + + | 2022-05-13 00:00 | BUPROPION HCL | [facility] | + + + + | 2022-05-14 00:00 | BUPROPION HCL | [facility] | + + + + Problems + + + + | date | description | facility | + + + + | 2015-01-11 00:00 | Gastritis | [facility] | + + + + | 2016-04-24 00:00 | Peptic ulcer | [facility] | + + + + | 2016-09-12 00:00 | Alcohol abuse | [facility] | + + + + | 2016-09-12 00:00 | Chest pain | [facility] | + + + + | 2019-05-21 00:00 | Acute gastritis | [facility] | + + + + | 2020-11-14 00:00 | Vomiting and diarrhea | [facility] | + + + + | 2022-05-13 00:00 | Abdominal pain | [facility] | + + + + | 2022-05-13 00:00 | Cannabinoid hyperemesis | [facility] | | | syndrome | | + [...] (missing) | | (unavailable | 08:54:08 | [facility] | | | | | ) | [...]
[~2022-12-11 13:57] MED LIST changes: +ATIVAN1 MG PO; +PROMETHAZINE HC25 M1 PO
[2022-12-11] MEDS ORDERED: BUPROPION HCL100 M1 PO (14:11)
[2022-12-11] MEDS ORDERED: METRONIDAZOLE500 MG PO (16:39)
[2022-12-11] MEDS ORDERED: HYDROCODON-ACE1 EA10 PO (16:39)
[2022-12-11] MEDS ORDERED: ONDANSETRON ODT8 MG PO (16:39)
[2022-12-11] MEDS ORDERED: CIPRO500 MG PO (16:39)
[2022-12-11 16:51] VITALS: BP 105/72
== END 2022-12-11 16:54 | disposition home or self-care (01) ==
LOC: ED 13:57
DX: K57.32 Diverticulitis of large intestine without perforation or abscess without bleeding (principal); F17.200 Nicotine dependence, unspecified, uncomplicated; Z88.8 Allergy status to other drugs, medicaments and biological substances; Z79.899 Other long term (current) drug therapy
CPT/HCPCS: 36415; 74018; 74177; 80053; 81001; 84703; 85025; J7121; Q9967